=== PATIENT | male | born 1965 | race African-American/Black ===

== ENCOUNTER 2018-09-15 10:42 | Emergency (ER) | payer MEDICAID ==
[~2018-09-15] VITALS: Ht 170.2 cm; Wt 75.9 kg
[~2018-09-15 10:42] MED LIST: ARIP10TA8 PO; SERT50TA12 PO
[2018-09-15] MEDS ORDERED: LIB5 PO (11:29)
[2018-09-15] MEDS ORDERED: ACETAMINOPHEN 500 MG TABLET PO ONE (14:30)
[2018-09-15 14:44] VITALS: BP 120/74
== END 2018-09-15 15:26 | disposition home or self-care (01) ==
LOC: EMS 10:43
DX: M79.675 Pain in left toe(s) (principal); F17.210 Nicotine dependence, cigarettes, uncomplicated; F10.20 Alcohol dependence, uncomplicated; F32.9 Major depressive disorder, single episode, unspecified; F12.90 Cannabis use, unspecified, uncomplicated; F15.90 Other stimulant use, unspecified, uncomplicated; Z88.0 Allergy status to penicillin; Z79.899 Other long term (current) drug therapy